=== PATIENT | male | born 1975 | race African-American/Black ===

== ENCOUNTER 2019-12-04 04:50 | Day surgery (SDC) | payer OTHER ==
[2019-12-02 15:32] VITALS: BMI 31.4
[2019-12-04] MEDS ORDERED: ceFAZolin SODIUM 1 GM VIAL ONE (10:08)
[2019-12-04] MEDS ORDERED: ROCURONIUM BROMIDE 50 MG/5 ML SYRINGE ONE ×2 (10:08→12:58)
[2019-12-04] MEDS ORDERED: PROPOFOL 20 ML ONE (10:08)
--- NOTE | 2019-12-04 10:30 | HP ---
History & Physical Update - History History: No Change - Physical Physical: No Change - Assessment Assessment: No Change - Plan Plan: No Change
[2019-12-04] MEDS ORDERED: DEXAMETHASONE SOD PHOSPHATE/PF 10 MG/ML SDV ONE (10:46)
[2019-12-04] MEDS ORDERED: MIDAZOLAM HCL 2 MG/2 ML SINGLE DOSE VIAL ONE ×2 (10:48)
[2019-12-04] MEDS ORDERED: ceFAZolin SODIUM 1 GM VIAL IVPB ONE (11:39)
[2019-12-04] MEDS ORDERED: oxyCODONE HCL 5 MG TABLET PO PRN (12:39)
[2019-12-04] MEDS ORDERED: ONDANSETRON 4 MG/2 ML VIAL IVPUSH PRN (12:39)
[2019-12-04] MEDS ORDERED: LACTATED RINGERS SOLUTION 1,000 ML IV SCH (12:45)
[2019-12-04] MEDS ORDERED: GLYCOPYRROLATE 0.2 MG/1 ML VIAL ONE (13:25)
[2019-12-04] MEDS ORDERED: NEOSTIGMINE METHYLSULFATE 0.5 MG/ML - 10 ML MDV ONE (13:25)
--- NOTE | 2019-12-04 13:49 | OP ---
Operative Note - Note: Operative Date: 12/04/19 Pre-Operative Diagnosis: left inguino-scrotal hernia with obstruction Operation: Robotic LIH repair with mesh Findings: large left inguinal hernia with incarcerated sigmoid colon Implants: Progrip mesh Post-Operative Diagnosis: Same as Pre-op Surgeon: Robby Solis Director Medical Science: Owen Balderas Anesthesiologist/VP SOFTWARE ENGINEERING: Sisi Hanna Anesthesia: General Estimated Blood Loss (mls): 10 Operative Report Dictated: Yes
--- NOTE | 2019-12-04 14:06 | SURG ---
Surgery Oceanology Teacher Note Oceanology Teacher: Owen Balderas PA-C (Suzy) Date of Service: 12/04/19 Diagnosis: left inguino-scrotal hernia with obstruction Procedure: Operation: Robotic LIH repair with mesh I was present for the entirety of the operative procedure. For further detail, please refer to operative report. Visit type - Case Type Case Type: Scheduled - Emergency Emergency Visit: No - New patient This patient is new to me today: Yes Date on this admission: 12/04/19 - Critical Care Critical Care patient: No
--- NOTE | 2019-12-04 14:47 | OP ---
DATE OF OPERATION: 12/04/2019 PROCEDURE: Robotic-assisted laparoscopic left inguinal hernia repair with mesh. PREOPERATIVE DIAGNOSIS: Left inguinal/scrotal hernia with obstruction. POSTOPERATIVE DIAGNOSIS: Left inguinal/scrotal hernia with obstruction. SURGEON: Robby Solis MD METER READER INSPECTOR: LOGAN Fulton ANESTHESIA: General endotracheal. FINDINGS ON PROCEDURE: This is a 44-year-old male who presents with large inguinal/scrotal bulge of the left side of the groin, which is only partially reducible. Patient was advised elective hernia repair and consent was obtained after discussing the risks, benefits, and alternatives of the procedure. The patient was brought to the operating room and placed in supine position with both arms tucked to the side. General endotracheal anesthesia was administered. The abdomen was prepped and draped in the usual sterile fashion. Using the Veress needle technique, pneumoperitoneum was established by an 8-mm supraumbilical incision with scalpel blade number 15. This was followed by insertion of an 8-mm port. The 3-D 30-degree laparoscope was inserted, and the peritoneal cavity was carefully inspected and was noted to be free of inadvertent injury. Patient was then placed in the Trendelenburg position. Two 8-mm ports were inserted on each side of the midline port 8 cm away from each other. The robotic arms were docked, and the target organ was set. The fenestrated bipolar forceps were inserted at the left-sided port then the EndoWrist srinivasan connected to monopolar cautery was inserted at the right-sided port. The undersigned scrubbed out to commence the console part of the procedure. An attempt to reduce the incarcerated sigmoid colon initially proved unsuccessful, so it was then decided upon to create a preperitoneal pocket by incising the peritoneum at the level of the anterior superior iliac spine using the EndoWrist srinivasan connected to monopolar cautery. Blunt and sharp dissection were done to create the pocket, which was carried medially towards the underside of the symphysis pubis, laterally to the anterior superior iliac spine, and inferiorly towards the psoas muscle. The large hernia sac containing incarcerated sigmoid colon was then carefully reduced until the sigmoid colon was reduced back to the peritoneal cavity. Further dissection of the hernia sac toward the inguinal canal was done using combined EndoWrist srinivasan dissection and the bipolar forceps for traction. This was carefully away from the spermatic cord structures and completely reduced. After completion of this maneuver, left-sided ProGrip Polypropylene Mesh was deployed to the posterior abdominal wall covering the attenuated left internal inguinal ring, the inguinal floor, and the femoral canal. After reconstruction was deemed satisfactory, the peritoneal pocket was then closed with a continuous V-Loc 2-0 absorbable suture. Peritoneal cavity was carefully inspected and noted to be free of inadvertent injury and abnormal fluid collected. The instruments were removed, and the robotic arms were undocked. The pneumoperitoneum was evacuated, and the ports were removed. The wounds were closed with subcuticular Biosyn 4-0 sutures reinforced with Dermabond. Patient was successfully extubated and transferred to the post-anesthesia care unit in satisfactory condition. Estimated blood loss was about 10 mL. WOUND CLASS: Clean. The patient received 2 g of Ancef prior to the start of the procedure. Joey [id number] MTDD
[2019-12-04 16:57] VITALS: TEMP 97.5
[2019-12-04 17:48] VITALS: BP 139/86; PULSE 75
== END 2019-12-04 18:00 | disposition home or self-care (01) ==
LOC: JASU-SURG 04:50
PROVIDERS: ATTEND Surgery
PROC: 8E0W4CZ Robotic Assisted Procedure of Trunk Region, Percutaneous Endoscopic Approach (ICD-10-PCS; 2019-12-04)
PROC: 0YU64JZ Supplement Left Inguinal Region with Synthetic Substitute, Percutaneous Endoscopic Approach (ICD-10-PCS; principal; 2019-12-04 10:30)
DX: K40.30 Unilateral inguinal hernia, with obstruction, without gangrene, not specified as recurrent (principal)
CPT/HCPCS: 49650; S2900; 94760